=== PATIENT | male | born 1940 | race Caucasian/White ===

== ENCOUNTER 2017-04-29 17:46 | Emergency (ER) | payer MEDICARE ==
[2017-04-29 18:59] VITALS: RESP 18
[2017-04-29 19:54] LABS: Basophils % (A) 1 %; Eosinophils # (A) 0.1 k/uL (0-0.7); Eosinophils % (A) 1 %; HCT 46.7 % (39.0-53.0); HGB 14.8 gm/dL (13.0-17.5); Lymphocytes # (A) 1.5 k/uL (1.0-4.8); Lymphocytes % (A) 17 %; MCH 29.5 pg (25.0-35.0); MCHC 31.8 g/dL (31.0-37.0); Mean Platelet Volume 7.5; Monocytes # (A) 0.4 k/uL (0-1.0); Monocytes % (A) 5 %; Neutrophils # (A) 6.3 k/uL (1.3-7.7); Neutrophils % (A) 75 %; Platelet Count 203 k/uL (150-450); RBC 5.02 m/uL (4.30-5.90); WBC 8.4 k/uL (3.8-10.6)
--- NOTE | 2017-04-29 19:57 | XR ---
EXAMINATION TYPE: XR chest 2V DATE OF EXAM: 04/29/2017 COMPARISON: NONE HISTORY: Chest pain TECHNIQUE: Frontal and lateral views of the chest are obtained. FINDINGS: There is no heart failure nor confluent pneumonic infiltrate. Costophrenic angles are quita r. There are chest leads. Heart size is normal. Bony thorax is intact. IMPRESSION: No active cardiopulmonary disease.
[2017-04-29] MEDS ORDERED: SODIUM CHLORIDE 0.9% 1,000 ML IV STA (20:01)
[2017-04-29 20:04] LABS: ALT 76 U/L (21-72); AST 47 U/L (17-59); Albumin 4.2 g/dL (3.5-5.0); Alkaline Phosphatase 64 U/L (38-126); Anion Gap 11 mmol/L; Blood Urea Nitrogen 16 mg/dL (9-20); Calcium 8.6 mg/dL (8.4-10.2); Carbon Dioxide 25 mmol/L (22-30); Chloride 104 mmol/L (98-107); Glucose 91 mg/dL (74-99); Potassium 4.6 mmol/L (3.5-5.1); Sodium 140 mmol/L (137-145); Total Bilirubin 0.8 mg/dL (0.2-1.3); Total Protein 7.2 g/dL (6.3-8.2)
[2017-04-29 20:26] LABS: Creatine Kinase 328 U/L (55-170); Magnesium 2.2 mg/dL (1.6-2.3)
[2017-04-29 20:39] LABS: Troponin I <0.012 ng/mL (0.000-0.034)
[2017-04-29 20:41] LABS: Creatine Kinase MB 5.3 ng/mL (0.0-2.4)
[2017-04-29] MEDS ORDERED: OSELTAMIVIR 75 MG CAP PO STA (21:03)
--- NOTE | 2017-04-29 21:27 | ED ---
URI HPI - General Chief Complaint: Upper Respiratory Infection Stated Complaint: Lightheaded Time Seen by Provider: 04/29/17 19:56 Source: patient, RN notes reviewed Mode of arrival: ambulatory Limitations: no limitations - History of Present Illness Initial Comments: This is a 76-year-old male with a complaint of upper respiratory congestion some lightheadedness rhinorrhea is has some green yellow nasal discharge also. Decreased oral intake of fluids over last couple days. He states he is return to [place] where he had spent a week. Additionally he states he has not been taking his Synthroid for one or one half months. He denies any chest pain overt cough fevers chills or sweats no other symptoms reported MD Complaint: rhinorrhea, nasal congestion, sinus pain - Related Data Home Medications Medication Instructions Recorded Confirmed ALPRAZolam [Xanax] 0.5 mg PO Q8HR 04/29/17 04/29/17 Cephalexin [Keflex] 500 mg PO ONCE 04/29/17 04/29/17 Fexofenadine HCl [Olga Lidia Allergy] 180 mg PO DAILY 04/29/17 04/29/17 Finasteride [Proscar] 5 mg PO DAILY 04/29/17 04/29/17 Levothyroxine Sodium [Synthroid] 150 mcg PO DAILY 04/29/17 04/29/17 amLODIPine/ATORVASTATIN 1 tab PO DAILY 04/29/17 04/29/17 [amLODIPine/ATORVASTATIN 10-10 mg] Previous Rx's Medication Instructions Recorded Oseltamivir [Tamiflu] 75 mg PO Q12HR #10 cap 04/29/17 Allergies Allergy/AdvReac Type Severity Reaction Status Date / Time brompheniramine Allergy Unknown Verified 04/29/17 18:52 [From Dimetapp (brompheniramine-PPA)] phenylpropanolamine Allergy Unknown Verified 04/29/17 18:52 [From Dimetapp (brompheniramine-PPA)] Review of Systems ROS Statement: Those systems with pertinent positive or pertinent negative responses have been documented in the HPI. ROS Other: All systems not noted in ROS Statement are negative. Past Medical History Past Medical History: Cancer, Hypertension, Thyroid Disorder History of Any Multi-Drug Resistant Organisms: None Reported Past Surgical History: Orthopedic Surgery, Tonsillectomy Additional Past Surgical History / Comment(s): lt ankle ,thyroidectomy,kidney removal Past Psychological History: No Psychological Hx Reported Smoking Status: Former smoker Past Alcohol Use History: Occasional Past Drug Use History: None Reported General Exam - General Exam Comments Initial Comments: This is a well-developed well-nourished awake alert oriented 3 male Limitations: no limitations General appearance: alert, in no apparent distress Head exam: Present: atraumatic, normocephalic, normal inspection Eye exam: Present: normal appearance, PERRL, EOMI. Absent: scleral icterus, conjunctival injection, periorbital swelling ENT exam: Present: mucous membranes dry, other (Boggy nasal mucosa) Neck exam: Present: normal inspection. Absent: tenderness, meningismus, lymphadenopathy Respiratory exam: Present: normal lung sounds bilaterally. Absent: respiratory distress, wheezes, rales, rhonchi, stridor Cardiovascular Exam: Present: regular rate, normal rhythm, normal heart sounds. Absent: systolic murmur, diastolic murmur, rubs, gallop, clicks GI/Abdominal exam: Present: soft, normal bowel sounds. Absent: distended, tenderness, guarding, rebound, rigid Extremities exam: Present: normal inspection, full ROM, normal capillary refill. Absent: tenderness, pedal edema, joint swelling, calf tenderness Back exam: Present: normal inspection Neurological exam: Present: alert, oriented X3, CN II-XII intact Psychiatric exam: Present: normal affect, normal mood Skin exam: Present: warm, dry, intact, normal color. Absent: rash Course Vital Signs 04/29/17 04/29/17 04/29/17 18:24 18:55 18:57 Temperature 98.3 F Pulse Rate 87 Pulse Rate [ 88 Sitting] Pulse Rate [ Standing] Pulse Rate [ 86 Supine] Respiratory 20 18 18 Rate Blood Pressure 186/84 Blood Pressure 177/87 [Sitting] Blood Pressure [Standing] Blood Pressure 175/92 [Supine] O2 Sat by Pulse 97 Oximetry 04/29/17 04/29/17 18:59 20:55 Temperature 98.4 F Pulse Rate 77 Pulse Rate [ Sitting] Pulse Rate [ 96 Standing] Pulse Rate [ Supine] Respiratory 18 18 Rate Blood Pressure 169/82 Blood Pressure [Sitting] Blood Pressure 180/87 [Standing] Blood Pressure [Supine] O2 Sat by Pulse 96 Oximetry Medical Decision Making - Medical Decision Making I did discuss Pfizer the patient is feeling improved after IV fluids she'll be discharged he does have influenza type B. - Lab Data Result diagrams: 04/29/17 19:05 04/29/17 19:05 Lab Results 04/29/17 04/29/17 04/29/17 Range/Units 19:05 19:05 19:05 WBC 8.4 (3.8-10.6) k/uL RBC 5.02 (4.30-5.90) m/uL Hgb 14.8 (13.0-17.5) gm/dL Hct 46.7 (39.0-53.0) % MCV 93.0 (80.0-100.0) fL MCH 29.5 (25.0-35.0) pg MCHC 31.8 (31.0-37.0) g/dL RDW 13.0 (11.5-15.5) % Plt Count 203 (150-450) k/uL Neutrophils % 75 % Lymphocytes % 17 % Monocytes % 5 % Eosinophils % 1 % Basophils % 1 % Neutrophils # 6.3 (1.3-7.7) k/uL Lymphocytes # 1.5 (1.0-4.8) k/uL Monocytes # 0.4 (0-1.0) k/uL Eosinophils # 0.1 (0-0.7) k/uL Basophils # 0.0 (0-0.2) k/uL Sodium 140 (137-145) mmol/L Potassium 4.6 (3.5-5.1) mmol/L Chloride 104 (98-107) mmol/L Carbon Dioxide 25 (22-30) mmol/L Anion Gap 11 mmol/L BUN 16 (9-20) mg/dL Creatinine 0.80 (0.66-1.25) mg/dL Est GFR (MDRD) Af Amer >60 (>60 ml/min/1.73 sqM) Est GFR (MDRD) Non-Af >60 (>60 ml/min/1.73 sqM) Glucose 91 (74-99) mg/dL Calcium 8.6 (8.4-10.2) mg/dL Magnesium (1.6-2.3) mg/dL Total Bilirubin 0.8 (0.2-1.3) mg/dL AST 47 (17-59) U/L ALT 76 H (21-72) U/L Alkaline Phosphatase 64 (38-126) U/L Total Creatine Kinase 328 H (55-170) U/L CK-MB (CK-2) 5.3 H* (0.0-2.4) ng/mL CK-MB (CK-2) Rel Index 1.6 Troponin I <0.012 (0.000-0.034) ng/mL Total Protein 7.2 (6.3-8.2) g/dL Albumin 4.2 (3.5-5.0) g/dL TSH (0.465-4.680) mIU/L Influenza Type A RNA (Not Detectd) Influenza Type B (PCR) (Not Detectd) 04/29/17 04/29/17 Range/Units 19:05 20:00 WBC (3.8-10.6) k/uL RBC (4.30-5.90) m/uL Hgb (13.0-17.5) gm/dL Hct (39.0-53.0) % MCV (80.0-100.0) fL MCH (25.0-35.0) pg MCHC (31.0-37.0) g/dL RDW (11.5-15.5) % Plt Count (150-450) k/uL Neutrophils % % Lymphocytes % % Monocytes % % Eosinophils % % Basophils % % Neutrophils # (1.3-7.7) k/uL Lymphocytes # (1.0-4.8) k/uL Monocytes # (0-1.0) k/uL Eosinophils # (0-0.7) k/uL Basophils # (0-0.2) k/uL Sodium (137-145) mmol/L Potassium (3.5-5.1) mmol/L Chloride (98-107) mmol/L Carbon Dioxide (22-30) mmol/L Anion Gap mmol/L BUN (9-20) mg/dL Creatinine (0.66-1.25) mg/dL Est GFR (MDRD) Af Amer (>60 ml/min/1.73 sqM) Est GFR (MDRD) Non-Af (>60 ml/min/1.73 sqM) Glucose (74-99) mg/dL Calcium (8.4-10.2) mg/dL Magnesium 2.2 (1.6-2.3) mg/dL Total Bilirubin (0.2-1.3) mg/dL AST (17-59) U/L ALT (21-72) U/L Alkaline Phosphatase (38-126) U/L Total Creatine Kinase (55-170) U/L CK-MB (CK-2) (0.0-2.4) ng/mL CK-MB (CK-2) Rel Index Troponin I (0.000-0.034) ng/mL Total Protein (6.3-8.2) g/dL Albumin (3.5-5.0) g/dL TSH 0.545 (0.465-4.680) mIU/L Influenza Type A RNA Not Detected (Not Detectd) Influenza Type B (PCR) Detected H (Not Detectd) - EKG Data -: EKG Interpreted by [place] EKG shows normal: sinus rhythm, axis, intervals, QRS complexes, ST-T waves (EKG shows normal sinus rhythm of 82 HI interval 156 QRS duration 70 daily since QTC of 42/469 st-t wave changes) Rate: normal - Radiology Data Radiology results: report reviewed (Review the imaging shows no acute findings.) , image reviewed Disposition Clinical Impression: Influenza, Dehydration Disposition: HOME SELF-CARE Condition: Good Instructions: Upper Respiratory Infection (ED), Influenza (ED), Dehydration (ED ) Prescriptions: Oseltamivir [Tamiflu] 75 mg PO Q12HR #10 cap Referrals: Nonstaff,Physician [Primary Care Provider] - 1-2 days
[2017-04-29 21:49] VITALS: BP 164/78; PULSE 87; TEMP 97.8
== END 2017-04-29 21:49 | disposition home or self-care (01) ==
LOC: EC 17:46
DX: J10.1 Influenza due to other identified influenza virus with other respiratory manifestations (principal); E86.0 Dehydration; I10 Essential (primary) hypertension; E07.9 Disorder of thyroid, unspecified; Z90.89 Acquired absence of other organs; Z88.8 Allergy status to other drugs, medicaments and biological substances; Z79.899 Other long term (current) drug therapy; Z87.890 Personal history of sex reassignment
CPT/HCPCS: 36415; 71046; 80053; 82550; 82553; 83735; 84443; 84484; 85025; 87502; 93005; 96360; 99284